=== PATIENT | female | born 1950 | race Two or more races ===

== ENCOUNTER → 2024-07-31 | Outpatient (CLI) | payer OTHER, MEDICAID, SELFPAY ==
--- NOTE | 2024-07-31 09:04 | XR_ITS ---
Examination: Diagnostic digital mammography, bilateral Computer aided detection 3-D breast Tomosynthesis, bilateral Date and time of exam: July 31, 2024 0930 hours INDICATIONS: Mammogram June 07, 2024 6 mm focal asymmetry upper right breast MLO view, 8 mm focal asymmetry upper outer left breast anterior depth Technique: Nonmagnified MLO, CC views of the breasts to been obtained, reconstructed from 3-D Tomosynthesis images. R2 computer aided detection program utilized for evaluation of suspicious masses and/or abnormal calcifications. 3-D Tomosynthesis images obtained. Findings: The breasts are heterogeneously dense, which may obscure small masses No suspicious mass right breast on the spot compression views noted No suspicious mass left breast on the spot compression views Impression: BI-RADS Category 2: Benign findings Return to yearly follow-up mammography Please see the left breast sonogram report today recommending 6 month left breast sonogram follow-up to document stability of 9:00 nodule retroareolar nodule left breast.
== END | disposition home or self-care (01) ==
LOC: CDIM 09:00
PROVIDERS: Referring Provider Internal Medicine; Visit Provider Internal Medicine
DX: R92.323 Mammographic fibroglandular density, bilateral breasts (principal); N63.25 Unspecified lump in the left breast, overlapping quadrants
CPT/HCPCS: 77062; 77066; G0279

== ENCOUNTER → 2024-12-26 | Outpatient (CLI) | payer MEDICARE, MEDICAID, SELFPAY ==
[2024-12-26 09:55] LABS: Glucose Estimated Average 272 mg/dL (80-131); Hemoglobin A1C 11.1 % Hgb (4.8-6.0)
[2024-12-26 09:56] LABS: Basophils % (Auto) 1 % (0-2.5); Eosinophils # (Auto) 0.2 Thou/mm3 (0.0-0.5); Eosinophils % (Auto) 4 % (0-10); Hematocrit 26.3 % (36.0-46.0); Immature Granulocytes % (Auto) 1 % (0-0); Immature Granulocytes Auto 0.03 Thou/mm3 (0.00-0.00); Lymphocytes # (Auto) 1.7 Thou/mm3 (1.0-4.8); Lymphocytes % (Auto) 27 % (10-50); Mean Corpuscular HGB Conc 33.1 g/dl (31.0-37.0); Mean Corpuscular Hemoglobin 27.8 pg (25.0-35.0); Mean Corpuscular Volume 84 fL (80-100); Monocytes # (Auto) 0.5 Thou/mm3 (0.0-0.8); Monocytes % (Auto) 8 % (0-12); Neutrophils # (Auto) 3.8 Thou/mm3 (1.8-7.7); Neutrophils % (Auto) 60 % (37-80); Nucleated Red Blood Cell % 0 /100 WBC (0); Platelet Count 267 Thou/mm3 (140-440); RDW Standard Deviation 45.2 fL (36.4-46.3); Red Blood Count 3.13 Miln/mm3 (4.00-5.20); White Blood Count 6.3 Thou/mm3 (3.6-11.0)
[2024-12-26 10:03] LABS: B-Type Natriuretic Peptide 240 pg/mL (0-100)
[2024-12-26 10:07] LABS: Parathyroid Hormone Intact 116.4 pg/ml (18.5-88.0)
[2024-12-26 10:13] LABS: Hemoglobin 8.7 g/dL (12.0-16.0)
[2024-12-26 10:26] LABS: Alanine Aminotransferase 14 U/L (10-49); Albumin, Serum 3.5 gm/dL (3.4-4.8); Albumin/Globulin Ratio 1.3 (1.2-2.2); Alkaline Phosphatase 134 U/L (46-116); Anion Gap 11 (7-16); Aspartate Amino Transferase 15 U/L (0-34); BUN/Creatinine Ratio 15 Ratio (12-20); Bilirubin,Total 0.2 mg/dL (0.3-1.2); Blood Urea Nitrogen 30 mg/dL (9-23); Calcium 8.2 mg/dL (8.3-10.6); Calcium (Corrected) 8.6 mg/dL (8.5-10.1); Carbon Dioxide 19.7 mMol/L (20.0-31.0); Cardiac Risk Estimate 3.6 RATIO (3.7-5.6); Chloride 112 mMol/L (98-107); Cholesterol 139 mg/dL (132-200); Globulin 2.6 gm/dL (2.3-3.5); Glucose 215 mg/dL (74-106); HDL Cholesterol 39 mg/dL (40-60); LDL Cholesterol,Calculated 79 mg/dL (0-130); Magnesium 1.8 mg/dL (1.6-2.6); Osmolality,Calculated 297 (275-295); Potassium 4.3 mMol/L (3.4-5.1); Sodium 143 mMol/L (136-145); Thyroid Stimulating Hormone 8.37 uIU/mL (0.55-4.78); Total Protein 6.1 gm/dL (5.7-8.2); Triglycerides 106 mg/dL (30-150); eGFR 25 See Note
== END | disposition home or self-care (01) ==
PROVIDERS: PCP Internal Medicine; Referring Provider Internal Medicine Cardiovascular Disease; Visit Provider Internal Medicine
DX: I12.9 Hypertensive chronic kidney disease with stage 1 through stage 4 chronic kidney disease, or unspecified chronic kidney disease (principal); E11.22 Type 2 diabetes mellitus with diabetic chronic kidney disease; N18.30 Chronic kidney disease, stage 3 unspecified; E78.5 Hyperlipidemia, unspecified; R06.02 Shortness of breath; I73.9 Peripheral vascular disease, unspecified; N39.0 Urinary tract infection, site not specified
CPT/HCPCS: 36415; 80053; 80061; 81001; 82043; 82570; 83036; 83735; 83880; 83970; 84443; 85025

== ENCOUNTER → 2024-12-27 | Outpatient (CLI) | payer MEDICARE, MEDICAID, SELFPAY ==
[2024-12-27 13:11] LABS: Collection Type, Urine Clean Catch; Squamous Epithelial Cell,Urine 0 /hpf (0-5)
[2024-12-27 14:32] LABS: Bilirubin,Urine Negative (Negative); Blood,Urine Trace (Negative); Clarity,Urine Clear (Clear/Hazy); Color,Urine Colorless (Lt Yel-Yel); Culture Indicated,Urine Not Indicated; Glucose, Urine 2+ (Negative); Hyaline Casts,Urine < 1 /hpf (0-1); Ketones,Urine Negative (Negative); Leukocyte Esterase,Urine Negative (Negative); Nitrite,Urine Negative (Negative); Protein,Urine 2+ (Neg - Trace); RBC,Urine 3 /hpf (0-3); Specific Gravity,Urine 1.009 (1.001-1.035); Urobilinogen,Urine Negative mg/dL (0.0-1.0); WBC,Urine < 1 /hpf (0-5)
[2024-12-27 14:54] LABS: Creatinine MALB Rnd Ur 23 mg/dL (30-125); Microalbumin Creat Ratio 1652 mg/gCrea (<30); Microalbumin, Random Urine > 380 mg/L (0-300)
== END | disposition home or self-care (01) ==
PROVIDERS: PCP Internal Medicine; Referring Provider Internal Medicine; Visit Provider Internal Medicine
DX: I12.9 Hypertensive chronic kidney disease with stage 1 through stage 4 chronic kidney disease, or unspecified chronic kidney disease (principal); E11.22 Type 2 diabetes mellitus with diabetic chronic kidney disease; N18.30 Chronic kidney disease, stage 3 unspecified; E78.5 Hyperlipidemia, unspecified
CPT/HCPCS: 81001; 82043; 82570

== ENCOUNTER → 2025-01-08 | Outpatient (CLI) | payer MEDICARE, MEDICAID, SELFPAY ==
--- NOTE | 2025-01-08 15:30 | XR_ITS ---
Examination: Breast ultrasound, unilateral, left complete Date and time of exam: January 08, 2025 1552 hours INDICATIONS: Breast sonography June 07, 2024 9:00 nodule left breast 9 mm retroareolar nodule left breast 7 mm Technique: Real-time hensley scale ultrasonographic imaging performed left breast including all 4 quadrants as well as nipple retroareolar and axillary region. Findings: 2:00 nodule indistinct margins with shadowing 10 x 14 x 10 mm 9:00 nodule lobular margins partially indistinct 16 x 5 x 12 mm Retroareolar nodule lobular margins 7 x 7 mm IMPRESSION: BI-RADS Category 4: Suspicious for malignancy Suspicious nodules 2:00 9:00 position left breast, biopsy both nodules is needed to exclude breast carcinoma, these nodules are amenable to ultrasound-guided breast biopsy for diagnosis
== END | disposition home or self-care (01) ==
PROVIDERS: PCP Internal Medicine; Referring Provider Internal Medicine; Visit Provider Internal Medicine
DX: N63.25 Unspecified lump in the left breast, overlapping quadrants (principal); N63.21 Unspecified lump in the left breast, upper outer quadrant
CPT/HCPCS: 76641

== ENCOUNTER 2025-01-20 07:19 | Emergency (ER) | payer OTHER, MEDICAID, SELFPAY ==
[2025-01-20] VITALS (7 sets, daily range): BP systolic 134–193; BP diastolic 55–88; PULSE 58–81; RESP 13–166; TEMP 34.2–34.6; O2SAT 98–100; BMI 28.8
--- NOTE | 2025-01-20 07:28 | PD.EDADULT ---
ED General RME/HPI General Chief complaint: Syncope / Near Syncope Stated complaint: UNRESPONSIVE X 0615 WITH COLD SWEATS; INTIAL BS 36 Time Seen by Provider: 01/20/25 07:30 Arrival date/time: 01/20/25 07:19 Limitations: no limitations RME / HPI RME / HPI narrative: DR. PAZ MAIN ED EVALUATION: 74 year old female with past medical history significant for hypertension, diabetes, anemia, and left BKA presents to the Emergency Department brought in by her son with complaint of altered mental status. Last well known time is unknown because son found her in bed diaphoretic, confused, and hypoglycemic at 630 AM. Per son, he found the patient diaphoretic in bed and checked her blood glucose which was 32 at 630 AM; he gave her a small fun size crunch chocolate bar and about [address] Spangler and then the glucose went up to the 300's but still not responding. Here at 0721 the blood glucose was 340. Son states she did not take her insulin this morning yet, only her oral dementia pill. Related Data Home Medications ?Medication ?Instructions ?Recorded ?Confirmed clonidine HCl 0.1 mg tablet 0.1 mg PO TID #0 tabs 06/04/17 04/03/24 atorvastatin 20 mg tablet 40 mg PO QPM 06/24/20 04/03/24 levothyroxine 25 mcg tablet 25 mcg PO QDAY 06/24/20 04/03/24 lisinopril 20 mg tablet 20 mg PO QDAY 06/24/20 04/03/24 pregabalin 50 mg capsule (Lyrica) 50 mg PO HS 06/24/20 04/03/24 amlodipine 10 mg tablet 10 mg PO QDAY 05/05/22 04/03/24 duloxetine 30 mg capsule,delayed 30 mg PO BID 05/05/22 04/03/24 release insulin degludec 200 unit/mL (3 24 unit subcut QAM 09/27/22 04/03/24 mL) subcutaneous pen (Tresiba FlexTouch U-200 insulin) semaglutide 0.25 mg or 0.5 mg (2 0.5 mg subcut QWEEK 09/25/23 04/03/24 mg/1.5 mL) subcutaneous pen injector (Ozempic) aspirin 81 mg tablet 81 mg PO QDAY 04/03/24 04/03/24 clopidogrel 75 mg tablet 75 mg PO QDAY 04/03/24 04/03/24 metoprolol succinate 25 mg 50 mg PO QDAY 04/03/24 04/03/24 tablet,extended release 24 hr Allergies Allergy/AdvReac Type Severity Reaction Status Date / Time No Known Allergies Allergy Verified 01/20/25 07:26 Review of Systems Review of Systems Systems Reviewed: All systems reviewed, normal except as documented Past Medical History Past Medical History NEUROLOGIC: Positive Neurological Disorders and Cerebrovascular Accident CARDIAC: Positive Cardiac Disorders, Heart Murmur, Hypercholesterolemia, Hypertension and Varicose Veins ENT: Positive Cataracts ENDOCRINE: Positive Diabetes Mellitus Type 2, Hypoglycemia and Hypothyroidism HEMATOLOGIC: Positive Blood Disorders and Anemia PSYCHO/SOCIAL: Positive Depression OTHER HISTORY: Positive Hospitalization, Chicken Pox and Measles Family History FAMILY HISTORY: Positive Family Psychiatric Problems Surgical History SURGICAL: Positive Amputation (LBKA) and Tubal Ligation Social History SMOKING STATUS: Never smoker SECOND HAND EXPOSURE: No SUBSTANCE USE: does not use ALCOHOL: Never ED Exam General Limitations: Present no limitations General appearance: Present other (obtunded, not cooperative) Head Head exam: Present atraumatic, normocephalic and normal inspection Eye Eye exam: Present other (pinpoint pupils) ENT ENT exam: Present normal exam, normal oropharynx and mucous membranes moist Neck Neck exam: Present normal inspection and trachea midline Chest Chest inspection: Present normal inspection and symmetric chest wall rise Respiratory Respiratory exam: Present normal lung sounds bilaterally Cardiovascular Cardiovascular exam: Present regular rate, normal rhythm and normal heart sounds Abdominal Exam Abdominal exam: Present soft and normal bowel sounds Extremities Exam Extremities exam: Present normal inspection Back Exam Back exam: Present normal inspection Neurological Exam Neurological exam: Present other (obtunded, not cooperative) Psychiatric Psychiatric exam: Present other (obtunded, not cooperative) Skin Skin exam: Present warm, dry, intact and normal color Course Quality Measures none Orders Category Date Time Status Bedside Blood Glucose NOW Care 01/20/25 07:31 Completed Child And Adolescent Therapist NOW Care 01/20/25 07:31 Completed Continuous Pulse Oximetry NOW Care 01/20/25 07:31 Completed EKG (ED ONLY) *Do not use* NOW Care 01/20/25 07:31 Completed Jeter [Urinary Catheter] QS Care 01/20/25 08:06 Completed Jeter to [place] Routine Care 01/20/25 07:47 Ordered In and Out Catheter NEEDED Care 01/20/25 07:31 Completed Initiate Warming Therapy NOW Care 01/20/25 09:53 Completed Insert IV NOW Care 01/20/25 07:31 Completed Insert NG / OG tube NOW Care 01/20/25 08:06 Completed Intubation NOW Care 01/20/25 08:08 Completed Intubation NOW Care 01/20/25 08:15 Completed NIH Stroke Scale now Care 01/20/25 07:31 Completed NPO NOW Care 01/20/25 07:31 Completed Neuro Check Q15MIN Care 01/20/25 07:31 Completed Nurse Swallow Screen x1 Care 01/20/25 07:31 Completed Consult to Neurology / Tele-Neurology Routine Cons 01/20/25 07:31 Active RT [Referral Respiratory Therapy] Stat Cons 01/20/25 07:47 Active Transfer to another facility [Transfer/Discharge] Stat Discharge 01/20/25 07:[address] angio stroke protocol Stat Exams 01/20/25 07:[address] stroke protocol Stat Exams 01/20/25 07:31 Completed EKG (ED Only) Stat Exams 01/20/25 07:31 Draft XR chest 1V post procedure Stat Exams 01/20/25 08:06 Completed Alcohol, Blood Medical Stat Lab 01/20/25 07:30 Completed Arterial Blood Gas Stat Lab 01/20/25 09:06 Completed B-Type Natriuretic Peptide Stat Lab 01/20/25 07:30 Completed CBC Stat Lab 01/20/25 07:30 Completed Comprehensive Metabolic Panel Stat Lab 01/20/25 07:30 Completed Drug Screen,Urine Stat Lab 01/20/25 08:40 Completed Magnesium Stat Lab 01/20/25 07:30 Completed Partial Thromboplastin Time Stat Lab 01/20/25 07:30 Completed Prothrombin Time with INR Stat Lab 01/20/25 07:30 Completed Troponin I Stat Lab 01/20/25 07:30 Completed Urinalysis Stat Lab 01/20/25 08:40 Completed Urine Culture Stat Lab 01/20/25 08:40 Received Dexamethasone Inj [Decadron Inj] Med 01/20/25 07:44 Discontinued 8 mg IV X1 ONE Dextrose 10%-Water 1000 ml [D10w 1000 ml] 250 ml Med 01/20/25 07:32 Discontinued IV Q15M Dextrose 50% Syr [D50w Syringe Abboject] Med 01/20/25 07:32 Discontinued 50 ml IV X1 ONE Etomidate Inj [Amidate Inj] Med 01/20/25 07:48 Discontinued 20 mg IVP X1 ONE Midazolam/Ns 100 mg Ivpb [Versed Pf Inj in Ns Premix] Med 01/20/25 08:03 Discontinued 100 mg in 100 ml IV 1 mg/hr Midazolam/Ns 100 mg Ivpb [Versed Pf Inj in Ns Premix] Med 01/20/25 08:49 Discontinued 100 mg in 100 ml IV 1 mg/hr NALOXONE INJ (Syringe) [Narcan Inj (Syringe)] Med 01/20/25 07:32 Discontinued 1 mg IV X1 ONE NALOXONE INJ (Syringe) [Narcan Inj (Syringe)] Med 01/20/25 07:27 Discontinued 2 mg .ROUTE .STK-MED ONE Nicardipine/Ns 20Mg Ivpb [Cardene Ivpb] Med 01/20/25 09:18 Discontinued 20 mg in 200 ml IV 5 mg/hr Ondansetron Inj [Zofran Inj] Med 01/20/25 07:30 Discontinued 4 mg IV Q4HR PRN Sodium Chloride Rt Kiara 10% [NS Rt Kiara 10%] Med 01/20/25 08:16 Discontinued 5 ml INH X1 ONE Succinylcholine Inj [Anectine Inj] Med 01/20/25 07:48 Discontinued 100 mg IV X1 ONE levETIRAcetam INJ [Keppra Inj] Med 01/20/25 07:44 Discontinued 1,000 mg IVP X1 ONE niCARdipine INJ [Cardene Iv] Med 01/20/25 09:17 Discontinued 10 mg IV X1 ONE Mechanical [Volume Ventilator] Stat RT 01/20/25 Active Oxygen Delivery NOW RT 01/20/25 07:31 Completed Sputum Induction PRN RT 01/20/25 08:30 Ordered Vital Signs Vital signs: Vital Signs Pulse Rate 81 01/20/25 07:24 Respiratory Rate 13 01/20/25 07:24 Pulse Oximetry (%) 98 01/20/25 07:24 Oxygen Delivery Method Room Air 01/20/25 07:24 Procedures -ED Intubation Time out performed: Yes sedative: Etomidate Mg Given: 20 paralytic: Succinylcholine Mg Given: 100 Laryngoscope: fiber optic video scope Assist Device Used: fiber optic device ET Tube Size: 7.5 ET Tube Uncuffed: No Tube Secured Depth (cm): 22 Tube Secured Location: lips Tube Placement Confirmation: visualized tube passing through cords, equal breath sounds bilaterally, no breath sounds over epigastrium and confirmation by capnometry Patient Tolerated Procedure: well and no complications Intubation Complications: none Critical Care Time Critical Care Time Critical Care Time: Yes Total Critical Care Time (min.): 60 Attestation: The high probability of sudden, clinically significant deterioration in the patient?s condition required the highest level of my preparedness to intervene urgently. The services I provided to this patient were to treat and/or prevent clinically significant deterioration. Services included the following: chart data review, reviewing nursing notes and/or old charts, documentation time, consultant dietitian collaboration regarding findings and treatment options, medication orders and management, direct patient care, vital sign assessments and ordering, interpreting and reviewing diagnostic studies and lab tests. Aggregate critical care time includes only time during which I was engaged in work directly related to the patient?s care, as described above, whether at bedside or elsewhere in the Emergency Department. It did not include time spent performing other reported procedures or the services of residents, students, nurses or physician assistants. Discharge Plan Plan Patient Disposition: [facility] Facility Pt Being Transferred to: [facility] Service Needed for Transfer: Neurology Prescriptions/Referrals Prescriptions/Med Rec: No Action clonidine HCl 0.1 MG tablet 0.1 mg PO TID Qty: 0 atorvastatin 20 mg Tablet 40 mg PO QPM levothyroxine 25 mcg Tablet 25 mcg PO QDAY Rx Instructions: take on an empty stomach pregabalin [Lyrica] 50 mg Capsule 50 mg PO HS Rx Instructions: 1-3 hours prior to bedtime lisinopril 20 MG tablet 20 mg PO QDAY Ozempic 0.25 mg or 0.5 mg(2 mg/1.5 mL) Pen Injector 0.5 mg SUBCUT QWEEK amlodipine 10 mg Tablet 10 mg PO QDAY duloxetine 30 mg Capsule,Delayed Release(Dr/Ec) 30 mg PO BID insulin degludec [Tresiba FlexTouch U-200] 200 unit/mL (3 mL) insulin pen 24 unit SUBCUT QAM clopidogrel 75 mg Tablet 75 mg PO QDAY metoprolol succinate 25 mg Tablet Extended Release 24 Hr 50 mg PO QDAY aspirin 81 mg Tablet 81 mg PO QDAY Referrals: Berny Chaney MD [Primary Care Provider] - In 1 week Problem List Clinical Impression: Ventricular hemorrhage, Brain bleed Patient/Caregiver Discharge Instructions Print Language: Belarusian Stand Alone Forms: Lyn Award Info., Patient Portal Info Letter [facility] Narrative [facility] hospital course: I, Kaylie Velazquez, am scribing for and in the presence of Dr. Paz. Head CT showed extensive hemorrhage in the ventricular system including third ventricle and fourth ventricle. Plan to transfer. Patient was intubated, see procedures. Patient placed on a versed drip. Dr. Garza from [facility] accepted patient for transfer. Clinical Information Provided by family Medical Records Reviewed [facility] Meds/Rx Considered, not Ordered None Labs/Rad/Tests considered, not Ordered None Chronic Illness/Social Conditions Add or document further as needed: Hypertension, diabetes, anemia, and left BKA EKG Interpretation EKG #1: Date/time of EK01/20/25 9:44 am EKG interpretation: sinus rhythm, rate 67, no STEMI, [place] interval 158 ms, QRS duration 101 ms, QT/QTc 409/450, P-R-T axis 54, 3, 57 Lab Interpretation Labs: see narrative above Imaging Imaging interpretation: see narrative above Radiology reports / interpretation(s): Procedure(s): CT stroke protocol Accession Number(s): [id number] cc: [place] Paz MD; Jose Isabel MD; Berny Chaney MD~ Examination: CT brain head without contrast. 2-D sagittal coronal reconstructions Date and time of exam:January 20, 2025 0738 hours INDICATIONS: Stroke alert, onset focal neurologic deficit today CTDI: vol (mGy):48.3 DLP: (mGycm):992 Technique: Multiple CT axial sections of the brain have been obtained, 5 mm slice thickness. Contrast has not been administered. 2-D sagittal, coronal reconstructions have been obtained Low dose protocols were performed. One or more of the following dose reduction techniques were used; automated exposure control, adjustment of the mA and/or KV according to patient size, use of iterative reconstruction technique. Findings: Mild enlargement ventricles Extensive hemorrhage in the ventricular system including third ventricle and fourth ventricle No midline shift No effacement cerebral sulci Cranial vault intact IMPRESSION: Extensive hemorrhage in the ventricular system Dictated By: Jose Isabel MD Procedure(s): CT angio stroke protocol Accession Number(s): [id number] cc: [place] Paz MD; Jose Isabel MD; Berny Chaney MD~ Examination: CTA carotids with intravenous contrast CTA brain, head with intravenous contrast. 2-D sagittal, coronal reconstructions. 3-D reconstructions. Exam date and time: January 20, 2025 0742 hours INDICATIONS: Stroke alert, altered mental status and focal neurologic deficit this morning CTDI: vol (mGy) 44.2 DLP: (mGycm) 441 Technique: Multiple CTA axial brain, head carotid images post intravenous contrast injection 100 cc, Isovue-370. 2-D sagittal, coronal reconstructions. 3-D reconstructions, 3-D post processing including vascular maximum intensity projection images. Low dose protocols were performed. One or more of the following dose reduction techniques were used; automated exposure control, adjustment of the mA and/or KV according to patient size, use of iterative reconstruction technique. Findings: Prominent vascular congestion, suspicious for pulmonary edema No significant common carotid carotid bifurcation or internal carotid artery stenoses Codominant vertebral arteries with no critical stenoses No cerebral large vessel occlusions or thrombus Extensive interventricular hemorrhage IMPRESSION: Recommend AP chest to confirm pulmonary edema No significant neck arterial stenoses No cerebral large vessel arterial occlusions Dictated By: Jose Isabel MD Procedure(s): XR chest 1V post procedure Accession Number(s): [id number] cc: [place] Paz MD; Jose Isabel MD; Berny Chaney MD~ Examination: AP chest single view Technique warm AP supine portable chest single view Date and time: January 20, 2025 0812 hours Comparison January 30, 2024 INDICATIONS: Stroke alert, hypoxic respiratory failure, postintubation FINDINGS: Endotracheal tube tip is at the pat Moderate enlargement left ventricle Orogastric tube coiled in stomach Moderate vascular congestion. Subsegmental atelectasis right lung No aspiration pneumonia IMPRESSION: Retract the endotracheal tube 3 cm Dictated By: Jose Isabel MD Medication Administration(s) Medication Administration History Discontinued Medications Dexamethasone Sodium Phosphate (Dexamethasone Sod Phos Inj 10 Mg/Ml Vial) 8 mg IV X1 ONE Stop: 01/20/25 07:45 Last Admin: 01/20/25 09:18 Dose: Not Given Documented By: MAURI Non-Admin Reason: Cancelled by Provider Dextrose (Dextrose 50%-Water Inj 50 Ml Syringe) 50 ml IV X1 ONE Stop: 01/20/25 07:33 Last Admin: 01/20/25 09:18 Dose: Not Given Documented By: MAURI Non-Admin Reason: Cancelled by Provider Etomidate (Etomidate Inj 2 Mg/Ml Vial 10 Ml) 20 mg IVP X1 ONE Stop: 01/20/25 07:49 Last Admin: 01/20/25 08:02 Dose: 20 mg Documented By: MAURI Dextrose (D10w 1000 Ml) 250 mls @ 999 mls/hr IV Q15M PRN PRN Reason: HYPOGLYCEMIA Stop: 02/19/25 07:31 Midazolam HCl (Versed Pf Inj In Ns Premix) 100 mg in 100 mls @ 1 mls/hr IV .Q24H PRN; Protocol PRN Reason: PER PROTOCOL Stop: 01/25/25 08:02 Last Titration: 01/20/25 10:25 Dose: 0 mg/hr, 0 mls/hr Documented By: Admin: 01/20/25 08:16 Dose: 1 mg/hr, 1 mls/hr Documented By: MAURI Midazolam HCl (Versed Pf Inj In Ns Premix) 100 mg in 100 mls @ 1 mls/hr IV .Q24H PRN; Protocol PRN Reason: PER PROTOCOL Stop: 01/25/25 08:48 Nicardipine/Sodium Chloride (Cardene Ivpb) 20 mg in 200 mls @ 50 mls/hr IV .Q4H PRN; Protocol PRN Reason: PER PROTOCOL Stop: 02/19/25 09:17 Levetiracetam (Levetiracetam Inj 100 Mg/Ml Vial 5ml) 1,000 mg IVP X1 ONE Stop: 01/20/25 07:45 Last Admin: 01/20/25 07:57 Dose: 1,000 mg Documented By: MAURI Naloxone HCl (Naloxone Inj 1 Mg/Ml Syringe 2 Ml) 1 mg IV X1 ONE Stop: 01/20/25 07:33 Last Admin: 01/20/25 07:56 Dose: 1 mg Documented By: MAURI Comments: IVP RIGHT AC Naloxone HCl (Naloxone Inj 1 Mg/Ml Syringe 2 Ml) Confirm Administered Dose 2 mg .ROUTE .STK-MED ONE Stop: 01/20/25 07:28 Last Admin: 01/20/25 07:56 Dose: Not Given Documented By: MAURI Non-Admin Reason: Duplicate Medication on eMAR Nicardipine HCl (Nicardipine Inj 2.5 Mg/Ml Vial 10 Ml) 10 mg IV X1 ONE Stop: 01/20/25 09:18 Last Admin: 01/20/25 09:24 Dose: 10 mg Documented By: MAURI Comments: IVP 20 LEFT FORARM FOR 2 MIN Ondansetron HCl (Ondansetron Inj 2 Mg/Ml Inj 2 Ml) 4 mg IV Q4HR PRN PRN Reason: NAUSEA OR VOMITING Stop: 02/19/25 07:29 Sodium Chloride (Sodium Chloride Rt 10% 15 Ml Nebu) 5 ml INH X1 ONE Stop: 01/20/25 08:17 Succinylcholine Chloride (Succinylcholine Inj 20 Mg/Ml Vial 10 Ml) 100 mg IV X1 ONE Stop: 01/20/25 07:49 Last Admin: 01/20/25 08:03 Dose: 100 mg Documented By: MAURI Comments: IVP RIGHT AC PUSHED OVER 1 MIN Consultations/Discussions re: Management Consult #1: Date/time: 01/20/25 8:50 am Physician, specialty, service, details: Discussed test HPI, PMHx, lab, radiology results and/or management with Dr. Garza from [facility]. Will accept for transfer from ED to ED. Diagnosis Differential diagnosis: TIA, CVA, brain bleed, hypoglycemia Most likely dx, and/or detailed dx discussion: Extensive hemorrhage in the ventricular system including third ventricle and fourth ventricle Brain bleed Dispositon Disposition: Transfer
--- NOTE | 2025-01-20 07:31 | XR_ITS ---
Examination: CTA carotids with intravenous contrast CTA brain, head with intravenous contrast. 2-D sagittal, coronal reconstructions. 3-D reconstructions. Exam date and time: January 20, 2025 0742 hours INDICATIONS: Stroke alert, altered mental status and focal neurologic deficit this morning CTDI: vol (mGy) 44.2 DLP: (mGycm) 441 Technique: Multiple CTA axial brain, head carotid images post intravenous contrast injection 100 cc, Isovue-370. 2-D sagittal, coronal reconstructions. 3-D reconstructions, 3-D post processing including vascular maximum intensity projection images. Low dose protocols were performed. One or more of the following dose reduction techniques were used; automated exposure control, adjustment of the mA and/or KV according to patient size, use of iterative reconstruction technique. Findings: Prominent vascular congestion, suspicious for pulmonary edema No significant common carotid carotid bifurcation or internal carotid artery stenoses Codominant vertebral arteries with no critical stenoses No cerebral large vessel occlusions or thrombus Extensive interventricular hemorrhage IMPRESSION: Recommend AP chest to confirm pulmonary edema No significant neck arterial stenoses No cerebral large vessel arterial occlusions
--- NOTE | 2025-01-20 07:31 | EKG_ITS ---
[facility] Test Date: 2025-01-20 Pat Name: CONNIE HERNANDEZ Department: Room: - Gender: Female Archives Specialist: : [id number] Requested By: [place] Order Number: [id number] Reading MD: [place] Measurements Intervals [place] Rate: 67 P: 69 VT: 184 QRS: -13 QRSD: 106 T: 141 QT: 443 QTc: 468 Interpretive Statements SINUS RHYTHM WITH FREQUENT SUPRAVENTRICULAR PREMATURE COMPLEXES LEFT VENTRICULAR HYPERTROPHY AND ST-T CHANGE [VOLTAGE CRITERIA PLUS ST/T ABNORMALITY] Compared to ECG 04/03/2024 09:19:53 ST (T wave) deviation now present T-wave abnormality no longer present Possible ischemia no longer present /store/S0/[id number]/ecg/[id number].pdf
--- NOTE | 2025-01-20 07:31 | XR_ITS ---
Examination: CT brain head without contrast. 2-D sagittal coronal reconstructions Date and time of exam:January 20, 2025 0738 hours INDICATIONS: Stroke alert, onset focal neurologic deficit today CTDI: vol (mGy):48.3 DLP: (mGycm):992 Technique: Multiple CT axial sections of the brain have been obtained, 5 mm slice thickness. Contrast has not been administered. 2-D sagittal, coronal reconstructions have been obtained Low dose protocols were performed. One or more of the following dose reduction techniques were used; automated exposure control, adjustment of the mA and/or KV according to patient size, use of iterative reconstruction technique. Findings: Mild enlargement ventricles Extensive hemorrhage in the ventricular system including third ventricle and fourth ventricle No midline shift No effacement cerebral sulci Cranial vault intact IMPRESSION: Extensive hemorrhage in the ventricular system
[2025-01-20 07:53] LABS: Basophils # (Auto) 0.1 Thou/mm3 (0.0-0.2); Basophils % (Auto) 1 % (0-2.5); Eosinophils # (Auto) 0.3 Thou/mm3 (0.0-0.5); Eosinophils % (Auto) 3 % (0-10); Hematocrit 33.5 % (36.0-46.0); Immature Granulocytes % (Auto) 0 % (0-0); Immature Granulocytes Auto 0.03 Thou/mm3 (0.00-0.00); Lymphocytes # (Auto) 4.5 Thou/mm3 (1.0-4.8); Lymphocytes % (Auto) 42 % (10-50); Mean Corpuscular HGB Conc 32.8 g/dl (31.0-37.0); Mean Corpuscular Hemoglobin 27.6 pg (25.0-35.0); Mean Corpuscular Volume 84 fL (80-100); Monocytes # (Auto) 0.6 Thou/mm3 (0.0-0.8); Monocytes % (Auto) 5 % (0-12); Neutrophils # (Auto) 5.4 Thou/mm3 (1.8-7.7); Neutrophils % (Auto) 50 % (37-80); Nucleated Red Blood Cell % 0 /100 WBC (0); Platelet Count 344 Thou/mm3 (140-440); RDW Standard Deviation 44.5 fL (36.4-46.3); Red Blood Count 3.99 Miln/mm3 (4.00-5.20); White Blood Count 10.8 Thou/mm3 (3.6-11.0)
[2025-01-20] MEDS: NALOXONE INJ 1 MG/ML SYRINGE 2 ML IV (07:56)
--- NOTE | 2025-01-20 07:56 | PC.NURSE ---
INITIALLY PULLED NARCAN 2MG SYRINGE AND MD ORDERED 1 MG NARCAN, BUT 1 MG NARCAN ALREADY GIVEN FROM THE 2 MG SYRINGE.
[2025-01-20] MEDS: levETIRAcetam INJ 100 MG/ML VIAL 5ML 1000 MG IVP (07:57)
[2025-01-20] MEDS: ETOMIDATE INJ 2 MG/ML VIAL 10 ML 20 MG IVP (08:02)
[2025-01-20] MEDS: SUCCINYLCHOLINE INJ 20 MG/ML VIAL 10 ML 100 MG IV (08:03)
--- NOTE | 2025-01-20 08:06 | XR_ITS ---
Examination: AP chest single view Technique warm AP supine portable chest single view Date and time: January 20, 2025 0812 hours Comparison January 30, 2024 INDICATIONS: Stroke alert, hypoxic respiratory failure, postintubation FINDINGS: Endotracheal tube tip is at the pat Moderate enlargement left ventricle Orogastric tube coiled in stomach Moderate vascular congestion. Subsegmental atelectasis right lung No aspiration pneumonia IMPRESSION: Retract the endotracheal tube 3 cm
[2025-01-20 08:09] LABS: Alanine Aminotransferase 21 U/L (10-49); Albumin, Serum 4.1 gm/dL (3.4-4.8); Albumin/Globulin Ratio 1.3 (1.2-2.2); Alcohol, Blood Medical < 3.0 mg/dL (0-10.0); Alkaline Phosphatase 173 U/L (46-116); Anion Gap 12 (7-16); Aspartate Amino Transferase 22 U/L (0-34); BUN/Creatinine Ratio 12 Ratio (12-20); Bilirubin,Total 0.2 mg/dL (0.3-1.2); Blood Urea Nitrogen 25 mg/dL (9-23); Calcium 9.8 mg/dL (8.3-10.6); Calcium (Corrected) 9.8 mg/dL (8.5-10.1); Carbon Dioxide 19.7 mMol/L (20.0-31.0); Chloride 106 mMol/L (98-107); Creatinine (Component) 2.1 mg/dL (0.6-1.3); Globulin 3.1 gm/dL (2.3-3.5); Glucose 392 mg/dL (74-106); Magnesium 2.1 mg/dL (1.6-2.6); Osmolality,Calculated 296 (275-295); Potassium 3.8 mMol/L (3.4-5.1); Sodium 138 mMol/L (136-145); Total Protein 7.2 gm/dL (5.7-8.2); Troponin I 0.024 ng/mL (0.0-0.045); eGFR 24 See Note
--- NOTE | 2025-01-20 08:13 | PRELIM_ITS ---
CT scan of the head without intravenous contrast (axial sections with sagittal and coronal reformats) January 20, 2025 at 0738 hours Clinical history: Focal neuro deficit, stroke suspected. Comparison: No prior study is available for comparison. Findings: There is an acute intraventricular hemorrhage in the 3rd, 4th and both lateral ventricles. There is mild dilatation of the ventricular system. There are periventricular white matter hypodensities, compatible with chronic small vessel ischemia. There is moderate volume loss. The calvarium is unremarkable. The mastoid air cells and the visualized paranasal sinuses are clear. Impression: Acute intraventricular hemorrhage in the 3rd, 4th and both lateral ventricles with possible evolving hydrocephalus. Recommend clinical correlation and follow-up. Periventricular chronic small vessel ischemia and volume loss. Discussion Details: Results verbally communicated to : Dr. Ng at 08:04 AM 01/20/2025 Report Electronically Signed By: Wilfred Langford 01/20/2025 8:12:43 AM [EST]
[2025-01-20] MEDS: MIDAZOLAM/NS 100 MG IVPB 100 MG/100 ML BAG IV (08:16)
[2025-01-20 08:26] LABS: Partial Thromboplastin Time 25.2 Seconds (22.0-36.0); Prothrombin Time 10.9 Seconds (9.0-12.2)
--- NOTE | 2025-01-20 08:50 | PC.NURSE ---
CALL RECEIVED FROM [facility] ACCEPTING PT TO [facility] ED TO ED. NURSE TO NURSE REPORT AT [phone]
--- NOTE | 2025-01-20 08:58 | PC.NURSE ---
PT BROUGHT INTO ED BY SON. SON STATES THAT BLOOD SUGAR WAS IN 30S AROUND 0600. SON STATES THE PT WAS COOL AND CLAMMY.
--- NOTE | 2025-01-20 08:58 | PC.NURSE ---
NIHSS COMPLETED. DURING NIHSS AT CT PT WAS ONLYH RESPONSIVE TO PAINFUL STIMUI. PT ONLY RESPONSED TO NAME. PT DID LIFT HANDS WHEN ASKED, BUT WASNT ABLE TO LIFT FEET. PT WAS ALSO UNABLE TO OPEN EYES. PUPILS ARE FIXED
--- NOTE | 2025-01-20 09:04 | PC.CM ---
Addendum entered by Nicholas Hemphill RN 01/20/25 09:16: 0910- Spoke with [facility] medial transport, [id number], confirmed transport to [facility]. Addendum entered by Nicholas Hemphill RN 01/20/25 09:14: 0845- Spoke with Kaveh in radiology who will create imaging disc and deliver to ER CN Pranay. Addendum entered by Nicholas Hemphill RN 01/20/25 09:12: 0840- Received call form Elo at [facility], patient has been accepted ED to ED by Dr. Garza. Phone number for report [phone], provided this information to ER CN Pranay. Collected signatures from MD and patient family. Packet handed off to ER DEONDRE Pires. Addendum entered by Nicholas Hemphill RN 01/20/25 09:10: 0835- Spoke with Corry at [facility] to initiate air transport for patient, provided information requested. They will check weather and initiate launch. 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 Addendum entered by Nicholas Hemphill RN 01/20/25 09:08: 0820- [place]oke with PORTIA Pizarro [place] at [facility] [place] provided clinical information and connected her to ER MD Ng for clinical update, will await response from them. Addendum entered by Nicholas Hemphill RN 01/20/25 09:07: 0805- Spoke with Elo at [facility] and provided clinical information. She will present case to her MD for review and call us back. Original Note: 0749- Received call from [facility] [employer], request for STAT transfer for brain bleed. Transfer packet initiated and Images pushed to [facility], [facility] [place], and [facility].
[2025-01-20 09:11] LABS: Base Excess -5 (-3-3); HCO3 21 mEq/L (20-26); Inspired Oxygen, FIO2 100 %; O2 Saturation 100 % (91-98); PCO2 38 mmHg (32.0-48.0); PO2 544 mmHg (83-108); pH, Arterial 7.35 (7.35-7.45)
--- NOTE | 2025-01-20 09:16 | PC.NURSE ---
PTS BP WAS ELEVATED. PROVIDER NOTFIED. AWAITING ORDERS. PROVIDER SAID THAT HE WAS GOING TO PLACE ORDERS
[2025-01-20 09:17] LABS: Allen Test Performed/OK; Puncture Site Right Radial
[2025-01-20 09:34] LABS: Collection Type, Urine Catheter; Squamous Epithelial Cell,Urine 0 /hpf (0-5)
[2025-01-20 09:35] LABS: B-Type Natriuretic Peptide 231 pg/mL (0-100)
[2025-01-20 09:57] LABS: Bilirubin,Urine Negative (Negative); Blood,Urine Trace (Negative); Clarity,Urine Clear (Clear/Hazy); Color,Urine Colorless (Lt Yel-Yel); Glucose, Urine 4+ (Negative); Ketones,Urine Negative (Negative); Leukocyte Esterase,Urine Negative (Negative); Nitrite,Urine Negative (Negative); Protein,Urine 2+ (Neg - Trace); RBC,Urine 1 /hpf (0-3); Specific Gravity,Urine 1.015 (1.001-1.035); Urobilinogen,Urine Negative mg/dL (0.0-1.0); WBC,Urine < 1 /hpf (0-5)
--- NOTE | 2025-01-20 10:03 | PC.NURSE ---
[facility] HERE TO SUPERVISORY HISTORIAN PT.
[2025-01-20 10:35] LABS: Amphetamine/Methamp Scrn,U Negative (Negative); Barbiturate Screen,Urine Negative (Negative); Benzodiazepines Screen,Urine Negative (Negative); Benzoylecgonine Screen, Ur Negative (Negative); Fentanyl Screen,Urine Negative (Negative); Opiate Screen,Urine Negative (Negative); THC Screen,Urine Negative (Negative)
--- NOTE | 2025-01-20 11:29 | PC.NURSE ---
PT LEFT BELONGS, FAMILY CONTACTED TO FILM NUMBERER BELONGS
--- NOTE | 2025-01-20 16:04 | ESCONSULT_ITS ---
Tele Neuro Consultation Consultation Date 01/20/25 Most Recent Vital Signs Last Vital Signs Temp 93.6 F L 01/20/25 10:04 Pulse 58 L 01/20/25 09:28 Resp 166 H 01/20/25 09:28 BP 134/55 H 01/20/25 09:28 Pulse Ox 100 01/20/25 09:28 O2 Del Method Mechanical Ventilation 01/20/25 09:28 O2 Flow Rate 50 01/20/25 09:28 FiO2 100 01/20/25 08:49 Laboratory-Coagulation Panel PT 10.9 Seconds (9.0-12.2) 01/20/25 07:30 INR 1.0 (0.9-1.3) 01/20/25 07:30 APTT 25.2 Seconds (22.0-36.0) 01/20/25 07:30 Consultation Narrative [facility] Patient Name: Ana Lilia Stoner Date of : 1950 Identification Number: Date of Service: 01/20/2025 07:29:43 Diagnosis: ? I61.5 - Intracerebral hemorrhage, intraventricular Impression: 74 years old female with history of HTN, DM, HLD, dementia, left BKA presents with AMS in the setting of uncontrolled BGL. On exam, patient is obtunded but able to follow simple commands for a brief period of time. NIHSS is 7. NCCT showed evidence of extensive hemorrhage in the ventricular system including third and fourth ventricle, probably hypertensive etiology. CTA head/neck also obtained showed no evidence of vascular abnormalities. Patient at risk of rapid deterioration. Recommend STAT neurosurgery consultation. Recommendation: Diagnostic Studies: ? Repeat CT head in first 8-12hrs ? CTA head and neck with contrast Laboratory Studies: ? INR/PT ? aPTT? ? CBC Medications: ? Hold?antiplatelet?therapy/NSAIDS/Anticoagulation Nursing Recommendations: ? Telemetry, IV Fluids?Avoid dextrose containing fluids, Maintain euglycemia ? Head of bed 30 degrees ? Neuro checks q1-2?hrs?during ICU stay ? Once stable neuro checks q4?hrs ? keep BP less than 140/90's with goal of 130/80s Consultations: ? Need Neurosurgery consultation?STAT ? Recommend Speech therapy if failed dysphagia screen ? Physical therapy/Occupational therapy DVT Prophylaxis: ? SCDs Disposition: ? Neurology will Follow Metrics: Last Known Well: Unknown Dispatch Time: 01/20/2025 07:29:42 Arrival Time: 01/20/2025 07:19:00 Initial Response Time: 01/20/2025 07:32:42 Symptoms: AMS. Initial patient interaction: 01/20/2025 07:50:00 NIHSS Assessment Completed: 01/20/2025 07:53:51 Patient is not a candidate for Thrombolytic. Thrombolytic Medical Decision: 01/20/2025 07:53:53 Patient was not deemed candidate for Thrombolytic because of following reasons: Current intracranial hemorrhage . CT Head: I personally reviewed all the CT images that were available to me and it showed: extensive hemorrhage in the ventricular system Primary Provider Notified of Diagnostic Impression and Management Plan on: 0 01/20/2025 07:41:01 History of Present Illness: Patient is a 74 year old Female. Patient was brought by private transportation with symptoms of AMS. Patient is a 74 years old female with history of HTN, DM, HLD, dementia, left BKA who presents to the ED with AMS. Per son report, they found her in bed diaphoretic and confused at 6:30am. Exact LKW is unknown. They took her blood sugar and it was 32. They gave her a small crunch bar and Dr. Spangler and her sugar came up to 300s but her mental status didn't improve and they decided to bring her to the ED for evaluation. BGL 340 on arrival to the ED. She was also given Narcan with no improvement. Past Medical History: ? Hypertension ? Diabetes Mellitus ? Hyperlipidemia ? Dementia/MCI Other PMH: left BKA Medications: No Anticoagulant use Antiplatelet use: Yes Aspirin 81 mg Reviewed EMR for current medications Allergies: NKDA Social History: Smoking: No Alcohol Use: No Family History: There is no family history of premature cerebrovascular disease pertinent to this consultation ROS : 14 Points Review of Systems was performed and was negative except mentioned in HPI. Past Surgical History: There Is No Surgical History Contributory To Today?s Visit Examination: BP(166/70), Pulse(77), Blood Glucose(340) 1A: Level of Consciousness - Requires repeated stimulation to arouse + 2 1B: Ask Month and Age - Aphasic + 2 1C: Blink Eyes & Squeeze Hands - Performs Both Tasks + 0 2: Test Horizontal Extraocular Movements - Normal + 0 3: Test Visual Ob[place] - No Visual Loss + 0 4: Test Facial Palsy (Use Grimace if Obtunded) - Normal symmetry + 0 5A: Test Left Arm Motor Drift - No Drift for 10 Seconds + 0 5B: Test Right Arm Motor Drift - No Drift for 10 Seconds + 0 6A: Test Left Leg Motor Drift - No Drift for 5 Seconds + 0 6B: Test Right Leg Motor Drift - No Drift for 5 Seconds + 0 7: Test Limb Ataxia (FNF/Heel-Power) - No Ataxia + 0 8: Test Sensation - Mild-Moderate Loss: Can Sense Being Touched + 1 9: Test Language/Aphasia - Severe Aphasia: Fragmentary Expression, Inference Needed, Cannot Identify Materials + 2 10: Test Dysarthria - Normal + 0 11: Test Extinction/Inattention - No abnormality + 0 NIHSS Score: 7 ICH Score: 3 NIHSS Text : left BKA Leia Coma Score: 5-12 (+1) Age >= 80: No (0) ICH volume >= 30mL: No (0) Intraventricular hemorrhage: Yes (+1) Infratentorial origin of hemorrhage: Yes (+1) Pre-Morbid Modified [place] Scale: 7 Points = Unable to assess This consult was conducted in real time using interactive audio and video technology. Patient was informed of the technology being used for this visit and agreed to proceed. Patient located in hospital and provider located at home/office setting. Due to the immediate potential for life-threatening deterioration due to underlying acute neurologic illness, I spent 40 minutes providing critical care. This time includes time for face to face visit via telemedicine, review of medical records, imaging studies and discussion of findings with providers, the patient and/or family. Dr Allison Lowe [facility] For Inpatient follow-up with [facility] physician please call [facility] at . As we are not an outpatient service for any post hospital discharge needs please contact the hospital for assistance. If you have any questions for the [facility] physicians or need to reconsult for clinical or diagnostic changes please contact us via [facility] at .
== END 2025-01-20 10:35 | disposition short-term general hospital (02) ==
PROVIDERS: Emergency Provider Family Medicine; PCP Internal Medicine
DX: I61.5 Nontraumatic intracerebral hemorrhage, intraventricular (principal); R47.81 Slurred speech; R29.707 NIHSS score 7; I10 Essential (primary) hypertension; E78.00 Pure hypercholesterolemia, unspecified; I49.1 Atrial premature depolarization
CPT/HCPCS: 31500; 51702; 36415; 36600; 70450; 70496; 70498; 80053; 80307; 80320; 81001; 82803; 83735; 83880; 84484; 85025; 85610; 85730; 87086; 87205; 93005; 94002; 96374; 99291; A4314; A4649; J0330; J1953; J2251; J2310; J3490; Q9967; G0480